=== PATIENT | female | born 1965 | race Caucasian/White ===

== ENCOUNTER 2020-12-04 18:49 | Emergency (ER) | payer OTHER ==
[~2020-12-04] VITALS: Ht 165.1 cm; Wt 125.7 kg
[2020-12-04] MEDS ORDERED: HYDROCODON-ACE1 EAC7 PO (19:21)
[2020-12-04] MEDS ORDERED: TOPAMAX100 MG PO (19:21)
[2020-12-04] MEDS ORDERED: LEVO-T100 MCG PO (19:21)
[2020-12-04] MEDS ORDERED: ALLEGRA ALLERG180 MG PO (19:22)
[2020-12-04] MEDS ORDERED: AUGMENTIN 875-1 EACH PO (19:22)
[2020-12-04 21:11] LABS: URINE BILIRUBIN NEGATIVE (Negative); URINE BLOOD NEGATIVE (Negative); URINE CLARITY CLEAR; URINE COLOR STRAW; URINE GLUCOSE-RANDOM NEGATIVE (Negative); URINE KETONES NEGATIVE (Negative); URINE LEUKOCYTES-REFLEX NEGATIVE (Negative); URINE NITRITE-REFLEX NEGATIVE (Negative); URINE PROTEIN NEGATIVE (Negative); URINE SPECIFIC GRAVITY <= 1.005 (1.005-1.030)
[2020-12-04 21:20] LABS: ABSOLUTE BASOPHILS 0.1 thou/uL (0.0-0.2); ABSOLUTE EOSINOPHILS 0.1 thou/uL (0.0-0.7); ABSOLUTE LYMPHOCYTES 3.9 thou/uL (0.8-5.3); ABSOLUTE MONOCYTES 1.2 thou/uL (0.0-1.2); ABSOLUTE NEUTROPHILS 10.2 thou/uL (1.6-8.1); BASOPHILS 0.5 %; HEMATOCRIT 42.4 % (37.0-47.0); HEMOGLOBIN 14.4 gm/dL (12.0-15.0); LYMPHOCYTES 25.2 %; MCH 29.7 pg (26.0-34.0); MCHC 33.9 g/dL (28.0-37.0); MCV 87.6 fL (80.0-100.0); MONOCYTES 7.7 %; MPV 9.2 fl. (7.2-11.1); NUCLEATED RBCS 0 /100WBC; PLATELET COUNT* 281 thou/uL (150-400); POLYS 65.6 %; RBC 4.83 mil/uL (4.20-5.00); RDW-CV 14.5 % (10.5-14.5); WBC 15.5 thou/uL (4.0-11.0)
[2020-12-04 21:26] LABS: CALCIUM 9.1 mg/dL (8.5-10.1); CREATININE 0.9 mg/dL (0.6-1.3)
[2020-12-04 21:30] LABS: ALBUMIN 3.5 g/dL (3.4-5.0); TOTAL BILIRUBIN 0.4 mg/dL (<0.1-1.0)
[2020-12-05] MEDS ORDERED: ACETAMINOPHEN-1 EAC2 PO (00:21)
[2020-12-05] MEDS ORDERED: ZOFRAN ODT4 MG PO (00:21)
[2020-12-05 00:34] VITALS: BP 103/59
== END 2020-12-05 00:34 | disposition home or self-care (01) ==
LOC: M.ERS 18:49
PROVIDERS: Nurse Practitioner Family; Personal Emergency Response Attendant
DX: R10.11 Right upper quadrant pain (principal); Z90.49 Acquired absence of other specified parts of digestive tract; Z90.710 Acquired absence of both cervix and uterus